=== PATIENT | male | born 1995 | race Caucasian/White ===

== ENCOUNTER 2021-04-01 09:50 | Emergency (ER) | payer BC ==
[~2021-04-01] VITALS: Ht 165.1 cm; Wt 90.0 kg
[2021-04-01 10:03] VITALS: BP 143/70
== END 2021-04-01 12:57 | disposition left against medical advice (07) ==
LOC: ER 09:50
DX: Z53.21 Procedure and treatment not carried out due to patient leaving prior to being seen by health care provider (principal)